=== PATIENT | female | born 1975 | race African-American/Black ===

== ENCOUNTER 2017-01-12 08:24 | Emergency (ER) | payer MEDICAID ==
[~2017-01-12] VITALS: Ht 170.2 cm; Wt 50.0 kg
[2017-01-12 09:54] VITALS: BP 100/67
[2017-01-12] MEDS ORDERED: ACETAMINOPHEN 500MG TABLET PO ONE (11:15)
== END 2017-01-12 14:31 | disposition home or self-care (01) ==
LOC: ER 10:07
DX: M54.5 Low back pain (principal); G89.29 Other chronic pain; B37.3 Candidiasis of vulva and vagina; J44.9 Chronic obstructive pulmonary disease, unspecified; F12.10 Cannabis abuse, uncomplicated; F17.210 Nicotine dependence, cigarettes, uncomplicated; Z98.890 Other specified postprocedural states; Z88.3 Allergy status to other anti-infective agents; Z91.018 Allergy to other foods
CPT/HCPCS: 81025; 99283; Z7610

== ENCOUNTER 2017-11-26 13:23 | Emergency (ER) | payer MEDICAID ==
[~2017-11-26] VITALS: Ht 170.2 cm; Wt 52.0 kg
[2017-11-26 15:17] LABS: CHLORIDE 106 mEq/L (98-107)
[2017-11-26 15:18] LABS: INR 1.1
[2017-11-26 15:21] LABS: ETHANOL BLOOD < 10 mg/dL
[2017-11-26 15:22] LABS: BASOPHILS % 0.3 % (0.0-2.0); EOSINOPHILS % 0.3 % (0.0-5.0); HEMATOCRIT. 39.5 % (36.0-48.0); HEMOGLOBIN. 13.4 g/dL (12.0-16.0); MEAN CORPUSCULAR HEMOGLOBIN 34.3 pg (28.0-32.0); MEAN CORPUSCULAR VOLUME 100.8 fL (81.0-99.0); MEAN PLATELET VOLUME 9.1 fl (7.4-10.4); MONOCYTES % 12.1 % (2.0-8.0); NEUTROPHILS % 67.3 % (40.0-76.0); PLATELET 177 x1000/uL (130-400); RED BLOOD CELL COUNT 3.92 mill/uL (4.2-5.4); RED CELL DISTRIBUTION WIDTH 12.9 % (11.6-14.6)
[2017-11-26 16:57] LABS: CLARITY URINE CLOUDY (CLEAR); COLOR URINE YELLOW (YELLOW); KETONES URINE NEGATIVE (NEGATIVE); LEUKOCYTE ESTERASE URINE 3+ (NEGATIVE); NITRITE URINE POSITIVE (NEGATIVE); OCCULT BLOOD URINE 3+ (NEGATIVE); PH URINE 6.5 (4.5-8.0); PROTEIN URINE 2+ (NEGATIVE); SPECIFIC GRAVITY URINE 1.006 (1.005-1.030); UROBILINOGEN URINE 0.2 E.U./dL (0.2-1.0)
[2017-11-26 16:59] LABS: UCG SCREEN NEGATIVE
[2017-11-26 18:44] LABS: *AMPHETAMINES SCREEN URINE NEGATIVE (NEGATIVE); *BARBITURATES SCREEN URINE NEGATIVE (NEGATIVE); *BENZODIAZEPINES SCREEN URINE NEGATIVE (NEGATIVE); *COCAINE SCREEN URINE NEGATIVE (NEGATIVE); METHADONE URINE SCREEN NEGATIVE (NEGATIVE)
[2017-11-26 18:45] LABS: OPIATES URINE SCREEN NEGATIVE (NEGATIVE); PHENCYCLIDINE URINE SCREEN NEGATIVE (NEGATIVE)
[2017-11-26 18:54] LABS: CANNABINOID URINE SCREEN PRESUMTIVE POSITIVE (NEGATIVE)
[2017-11-26] MEDS ORDERED: ACETAMINOPHEN 325MG TABLET PO ONE (19:30)
[2017-11-26 20:15] VITALS: BP 121/69
== END 2017-11-26 20:51 | disposition home or self-care (01) ==
LOC: ER 15:43
DX: N39.0 Urinary tract infection, site not specified (principal); R55 Syncope and collapse; J44.9 Chronic obstructive pulmonary disease, unspecified; F12.10 Cannabis abuse, uncomplicated; R00.1 Bradycardia, unspecified; Z87.11 Personal history of peptic ulcer disease; Z88.3 Allergy status to other anti-infective agents; Z98.890 Other specified postprocedural states; Z91.018 Allergy to other foods
CPT/HCPCS: 36415; 80053; 80305; 81003; 81025; 83690; 85025; 85610; 87077; 87086; 87186; 93005; 99285; G0482; Z7610

== ENCOUNTER 2022-05-08 13:23 | Emergency (ER) | payer MEDICAID, OTHER ==
[~2022-05-08] VITALS: Ht 160 cm; Wt 70.0 kg
[2022-05-08 13:30] VITALS: BP 106/35
== END 2022-05-08 15:25 | disposition home or self-care (01) ==
LOC: ER 13:23
DX: Z48.00 Encounter for change or removal of nonsurgical wound dressing (principal)
CPT/HCPCS: 99281